=== PATIENT | male | born 1965 | race Caucasian/White ===

== ENCOUNTER → 2021-11-22 | Outpatient (CLI) | payer OTHER ==
[2021-11-22 11:32] LABS: BASOPHILS ABSOLUTE AUTO 0.04 K/mm3 (0.00-0.23); BASOPHILS PERCENT AUTO 0 % (0-2); EOSINOPHILS ABSOLUTE AUTO 0.52 K/mm3 (0.00-0.68); EOSINOPHILS PERCENT AUTO 6 % (0-6); Hematocrit 42.1 % (37.0-53.0); Hemoglobin 14.6 g/dL (13.5-17.5); IMMATURE GRAN ABSOLUTE AUTO 0.04 K/mm3 (0.00-0.10); IMMATURE GRAN PERCENT AUTO 0 % (0-1); LYMPHOCYTES ABSOLUTE AUTO 1.99 K/mm3 (0.84-5.20); LYMPHOCYTES PERCENT AUTO 21 % (21-46); MONOCYTES ABSOLUTE AUTO 0.67 K/mm3 (0.16-1.47); MONOCYTES PERCENT AUTO 7 % (4-13); Mean Corpuscular HGB 31.6 pg (26.0-34.0); Mean Corpuscular HGB Conc 34.7 g/dL (31.5-36.5); Mean Corpuscular Volume 91 fL (80-100); NEUTROPHILS ABSOLUTE AUTO 6.13 K/mm3 (1.96-9.15); NEUTROPHILS PERCENT AUTO 65 % (41-73); Platelet Count 162 K/mm3 (150-400); RDW Coefficient Variation 12.3 % (11.7-14.2); RDW Standard Deviation 40.8 fL (35.1-46.3); Red Blood Cell Count 4.62 M/mm3 (4.30-5.90); White Blood Cell Count 9.39 K/mm3 (4.00-11.30)
[2021-11-22 12:46] LABS: Alanine Aminotransfer (ALT/SGP 36 U/L (12-78); Albumin, Blood 3.3 g/dL (3.4-5.0); Albumin/Globulin Ratio 0.9 (0.8-1.8); Alk Phos 78 U/L (50-136); Anion Gap 8 mmol/L (6-16); Aspartate Aminotrans (AST/SGOT 24 U/L (12-37); Bilirubin, Total 0.3 mg/dL (0.1-1.0); Blood Urea Nitrogen 12 mg/dL (8-24); Bun/Creatinine Ratio 14.5 (12.0-20.0); CO2, Blood 23 mmol/L (21-32); Calcium, Blood 8.9 mg/dL (8.5-10.1); Chloride, Blood 107 mmol/L (98-108); Creatinine, Blood 0.83 mg/dL (0.60-1.20); Globulin, Blood 3.7 g/dL (2.2-4.0); Glomerular Filtration Rate >60 (60-); Glucose, Blood 134 mg/dL (70-99); Potassium, Blood 3.8 mmol/L (3.5-5.5); Sodium, Blood 138 mmol/L (136-145)
== END | disposition home or self-care (01) ==
LOC: LAB 11:25 → LAB SHORT 11:25
PROVIDERS: Chiropractor
DX: R06.09 Other forms of dyspnea (principal)
CPT/HCPCS: 80053; 83880; 84484; 85025; 85379

== ENCOUNTER 2025-04-01 01:42 | Day surgery (SDC) | payer OTHER ==
[~2025-04-01 01:42] MED LIST: FLUT.05NI; LEVSOD112 PO; MORP30 PO; OXYC5 PO; Ondansetron Odt8 MG MM; PROC5 PO; SENNA LAXATIVE8.6 MG PO
[2025-04-01 13:58] VITALS: BP 126/79
== END 2025-04-01 14:03 | disposition home or self-care (01) ==
LOC: ATC 01:42
DX: C20 Malignant neoplasm of rectum (principal); C79.71 Secondary malignant neoplasm of right adrenal gland; C77.2 Secondary and unspecified malignant neoplasm of intra-abdominal lymph nodes; C78.7 Secondary malignant neoplasm of liver and intrahepatic bile duct; G89.3 Neoplasm related pain (acute) (chronic); F17.210 Nicotine dependence, cigarettes, uncomplicated; Z79.890 Hormone replacement therapy; Z88.8 Allergy status to other drugs, medicaments and biological substances
CPT/HCPCS: 96523; J1642

== ENCOUNTER 2025-04-15 08:03 | Day surgery (SDC) | payer OTHER | END 2025-04-15 10:55 | disposition home or self-care (01) | LOC: ATC 08:03 | DX: C20 Malignant neoplasm of rectum (principal); F17.290 Nicotine dependence, other tobacco product, uncomplicated; Z88.8 Allergy status to other drugs, medicaments and biological substances | CPT/HCPCS: 96523 ==

== ENCOUNTER 2025-04-29 08:06 | Day surgery (SDC) | payer OTHER ==
[2025-04-29 14:25] VITALS: BP 131/91
== END 2025-04-29 14:31 | disposition home or self-care (01) ==
LOC: ATC 08:06
DX: C20 Malignant neoplasm of rectum (principal); C78.7 Secondary malignant neoplasm of liver and intrahepatic bile duct; C79.70 Secondary malignant neoplasm of unspecified adrenal gland; C77.2 Secondary and unspecified malignant neoplasm of intra-abdominal lymph nodes; G89.3 Neoplasm related pain (acute) (chronic); F17.210 Nicotine dependence, cigarettes, uncomplicated; F17.220 Nicotine dependence, chewing tobacco, uncomplicated; Z79.890 Hormone replacement therapy; Z79.899 Other long term (current) drug therapy
CPT/HCPCS: 96523; J1642

== ENCOUNTER 2025-05-20 01:38 | Day surgery (SDC) | payer OTHER ==
[2025-05-20 11:36] VITALS: BP 140/81
--- NOTE | 2025-05-20 12:03 | NUR ---
PT PULLED HIS OWN DRESSING OFF AND COWAN NEEDLE WAS D/C'D PRIOR TO BEING ABLE TO BE FLUSHED WITH SALINE OR HEPARIN.
== END 2025-05-20 11:42 | disposition home or self-care (01) ==
LOC: ATC 01:38
DX: C20 Malignant neoplasm of rectum (principal); F17.200 Nicotine dependence, unspecified, uncomplicated; Z88.8 Allergy status to other drugs, medicaments and biological substances; Z79.899 Other long term (current) drug therapy
CPT/HCPCS: 96523

== ENCOUNTER 2025-06-03 11:15 | Day surgery (SDC) | payer OTHER | END 2025-06-03 11:22 | disposition home or self-care (01) | LOC: ATC 11:15 | DX: C20 Malignant neoplasm of rectum (principal); F17.200 Nicotine dependence, unspecified, uncomplicated; Z88.8 Allergy status to other drugs, medicaments and biological substances; Z79.899 Other long term (current) drug therapy | CPT/HCPCS: 96523; J1642 ==

== ENCOUNTER 2025-06-24 00:45 | Day surgery (SDC) | payer OTHER ==
[2025-06-24 11:10] VITALS: BP 129/89
== END 2025-06-24 11:16 | disposition home or self-care (01) ==
LOC: ATC 00:45
DX: C20 Malignant neoplasm of rectum (principal); Z88.8 Allergy status to other drugs, medicaments and biological substances; F17.210 Nicotine dependence, cigarettes, uncomplicated; F17.290 Nicotine dependence, other tobacco product, uncomplicated
CPT/HCPCS: 96523; J1642

== ENCOUNTER 2025-07-08 00:23 | Day surgery (SDC) | payer OTHER ==
[2025-07-08 11:00] VITALS: BP 137/85
== END 2025-07-08 11:11 | disposition home or self-care (01) ==
LOC: ATC 00:23
DX: C20 Malignant neoplasm of rectum (principal); C79.71 Secondary malignant neoplasm of right adrenal gland; C78.7 Secondary malignant neoplasm of liver and intrahepatic bile duct; C77.2 Secondary and unspecified malignant neoplasm of intra-abdominal lymph nodes; F17.210 Nicotine dependence, cigarettes, uncomplicated; Z88.8 Allergy status to other drugs, medicaments and biological substances
CPT/HCPCS: 96523; 99211; J1642

== ENCOUNTER 2025-07-22 00:26 | Day surgery (SDC) | payer OTHER ==
[2025-07-22 11:53] VITALS: BP 125/92
== END 2025-07-22 11:54 | disposition home or self-care (01) ==
LOC: ATC 00:26
DX: Z45.2 Encounter for adjustment and management of vascular access device (principal); C20 Malignant neoplasm of rectum; C78.7 Secondary malignant neoplasm of liver and intrahepatic bile duct; C79.70 Secondary malignant neoplasm of unspecified adrenal gland; C77.2 Secondary and unspecified malignant neoplasm of intra-abdominal lymph nodes; F17.210 Nicotine dependence, cigarettes, uncomplicated; F17.290 Nicotine dependence, other tobacco product, uncomplicated; Z88.8 Allergy status to other drugs, medicaments and biological substances; Z79.899 Other long term (current) drug therapy
CPT/HCPCS: 96523; J1642

== ENCOUNTER 2025-08-12 00:44 | Day surgery (SDC) | payer OTHER ==
[2025-08-12 11:37] VITALS: BP 144/80
== END 2025-08-12 11:48 | disposition home or self-care (01) ==
LOC: ATC 00:44
DX: C20 Malignant neoplasm of rectum (principal); C79.70 Secondary malignant neoplasm of unspecified adrenal gland; C77.2 Secondary and unspecified malignant neoplasm of intra-abdominal lymph nodes; C78.7 Secondary malignant neoplasm of liver and intrahepatic bile duct; G89.3 Neoplasm related pain (acute) (chronic); F17.210 Nicotine dependence, cigarettes, uncomplicated; Z79.890 Hormone replacement therapy; Z88.8 Allergy status to other drugs, medicaments and biological substances
CPT/HCPCS: 96523; J1642

== ENCOUNTER 2025-08-26 11:41 | Day surgery (SDC) | payer OTHER | END 2025-08-26 11:57 | disposition home or self-care (01) | LOC: ATC 11:41 | DX: C20 Malignant neoplasm of rectum (principal); C79.70 Secondary malignant neoplasm of unspecified adrenal gland; C77.2 Secondary and unspecified malignant neoplasm of intra-abdominal lymph nodes; C78.7 Secondary malignant neoplasm of liver and intrahepatic bile duct; F17.220 Nicotine dependence, chewing tobacco, uncomplicated; F17.210 Nicotine dependence, cigarettes, uncomplicated; G89.3 Neoplasm related pain (acute) (chronic); Z79.890 Hormone replacement therapy; Z88.8 Allergy status to other drugs, medicaments and biological substances | CPT/HCPCS: 96523; J1642 ==